=== PATIENT | male | born 1980 | race Caucasian/White ===

== ENCOUNTER 2018-12-01 15:08 | Inpatient (IN) | payer MEDICARE ==
[~2018-12-01] VITALS: Ht 185.4 cm; Wt 118.2 kg
--- NOTE | ~2018-12-01 | CN ---
PATIENT NAME:ZAY DE JESUS MEDICAL RECORD: [id number] : 76 LOCATION:D.MS [id number] ADMIT DATE: 12/01/18 ACCOUNT: [id number] CONSULTING PHYSICIAN: SHANE GARCÍA MD REFERRING PHYSICIAN: JEREMY PETERSON MD DATE OF CONSULTATION: 12/01/2018 CONSULT REQUESTING PHYSICIAN: Siva Valverde DO REASON FOR CONSULTATION: Pneumonia, leukocytosis, and fever. HISTORY OF PRESENT ILLNESS: Mr. De Jesus is a 38-year-old gentleman who has upper respiratory tract infection, started 2 weeks ago. The patient did not see any doctor and he did not take any antibiotics. Last night, he had a fever of 102, seen in Dr. Peterson' office. Chest radiograph showed he has pneumonia on the right side. There is no chest x-ray available for review. REVIEW OF THE SYSTEMS: As in history of present illness. PAST MEDICAL HISTORY: 1. Attention deficit syndrome. 2. Rheumatoid arthritis. 3. History of opioid dependence. 4. Chronic backache. ALLERGIES: HE IS ALLERGIC TO BUSPAR. MEDICATIONS: Gecko Audio was reviewed. PERSONAL AND SOCIAL HISTORY: He is smoker, he believes he quit it yesterday. PHYSICAL EXAMINATION: GENERAL: Now, the patient is lying comfortably in bed. He is not in acute distress. VITAL SIGNS: The blood pressure is 136/76, pulse is 104, respiration is 18, temperature is 99, and SpO2 is 96% on room air. HEENT: Conjunctivae are pink. Sclerae are not icteric. NECK: Neck is supple. No JVD. CHEST: On chest excursion, minimal crackle on the right side. No wheezing. HEART: Rhythm regular. Normal sound. No murmur. ABDOMEN: Abdomen is soft. Bowel sounds present. No hepatosplenomegaly. RECTAL: Deferred. EXTREMITIES: No cyanosis. No clubbing. No pedal edema. CENTRAL NERVOUS SYSTEM: The patient is awake and alert. There is no obvious cranial nerve abnormality. The gait was not tested. LABORATORY DATA: CBC; WBC is 26.6, hemoglobin 13.5, hematocrit 39.6, and platelet count 182. Chemistry; sodium 138, potassium 3.6, BUN is 13, and creatinine 0.9. IMPRESSION: 1. Pneumonia on the right side. 2. Leukocytosis. 3. Fever. 4. Hypertension. CONSULT REPORT [id number] ZAY DE JESUS 5. Rheumatoid arthritis. 6. Tobacco dependence syndrome. 7. Suspect COPD. RECOMMENDATION: 1. Continue albuterol/ipratropium nebulizer. 2. Methylprednisolone IV. 3. Vancomycin IV and Levaquin IV. 4. Follow up labs and chest radiograph. 5. The patient was counseled to quit smoking. Dr. Valverde, thank you for involving me in the care of Mr. De Jesus. TRANSINT:[id number] Voice Confirmation ID: [id number] DOCUMENT ID: [id number] SHANE GARCÍA MD CC: JEREMY PETERSON [id number] DICTATION DATE: 12/01/18 173 PAINT PREP TECHNICIAN: 12/01/18 1834 ADM IN [place] [place] [id number] [place] [address]
[~2018-12-01 15:08] MED LIST: ANUSOL SUPP1 SUPP; ANUSOL-HC25 MG RC; COLACE100 MG PO; KLONOPIN0.5 MG PO; LEVAQUIN500 MG PO; NORCO 10/325 TA1 TA1 PO; PHENERGAN25 M1 PO; PLAQUENIL200 MG PO; PRILOSEC20 MG PO; PRINIVIL20 MG PO; SOMA350 MG PO; TRICOR145 MG PO; TYLENOL #4 W/CO1 TAB PO
[2018-12-01] MEDS ORDERED: BUPRENORPHIN-N1 EACH (15:41)
[2018-12-01] MEDS ORDERED: ADDERALL 20 MG20 M1 (15:42)
[2018-12-01] MEDS ORDERED: VOLTAREN100 GM TOPICAL (15:45)
[2018-12-01 16:02] VITALS: BP 136/76; Ht 185.4 cm; Wt 118.2 kg
[2018-12-01 16:50] LABS: HEMATOCRIT 39.6 % (42.0-54.0); HEMOGLOBIN 13.5 g/dL (13.5-17.5); MCH 29.5 pg (26.0-34.0); MCHC 34.1 g/dL (31.0-37.0); MCV 86.5 fL (80.0-100.0); MEAN PLATELET VOLUME 11.8 fL (7.4-10.4); PLATELET COUNT 182 10x3/uL (130-400); RBC 4.58 10x6/uL (4.20-6.10); RDW 13.1 % (11.5-14.5); WBC 26.6 10x3/uL (4.8-10.8)
[2018-12-01 16:53] LABS: ALBUMIN 3.2 g/dL (3.4-5.0); ALKALINE PHOSPHATASE 84 U/L (46-116); ALT (SGPT) 33 U/L (10-68); BILIRUBIN - TOTAL 0.75 mg/dL (0.2-1.3); CALC OSMOLALITY 275 mosm/kg (275-300); CALCIUM 8.5 mg/dL (8.5-10.1); CARBON DIOXIDE 26.5 mmol/L (21.0-32.0); CHLORIDE - SERUM 102 mmol/L (98-107); CREATININE - SERUM 0.9 mg/dL (0.6-1.3); GLUCOSE 92 mg/dL (74-106); POTASSIUM - SERUM 3.6 mmol/L (3.5-5.1); PROTEIN - SERUM 7.5 g/dL (6.4-8.2); SODIUM 138 mmol/L (136-145); UREA NITROGEN 13 mg/dL (7-18); eGFR NON AFRICAN AMERICAN > 90 mL/min (90-120)
[2018-12-01 17:23] VITALS: BP 136/76
[2018-12-01 18:31] LABS: EOSINOPHILS 2 % (0-7); LYMPHOCYTES 8 % (15-50); MONOCYTES 1 % (2-11); NEUTROPHILS 89 % (40-80); PLATELET ESTIMATE NORMAL
--- NOTE | 2018-12-01 19:35 | NUR ---
LYING IN BED. ALERT AND ORIENTED X4. RESP EVEN AND NONLABORED. NONPROD COUGH NOTED. ABD IS DISTENDED. BS ACTIVE X4 QUADS. STATES LAST BM WAS 2 DAYS AGO. NS @ 100 ML/HR INFUSING IN LT HAND WITHOUT DIFF. REPORTS PAIN ALL OVER 8. OFFERED TYLENOL. PT REFUSED. ASKING ABOUT HIS SUBOXONE. INFORMED PT IT IS DUE AT 2100 AND SAYS TO GIVE HIS OWN MED. HE STATES HE DOESNT HAVE HIS HOME MEDS WITH HIM AND GETS AGITATED.
[2018-12-01 20:31] VITALS: BP 143/86
--- NOTE | 2018-12-01 22:03 | NUR ---
SPOKE WITH PHARMACY. SUBOXONE FILM IS UNAVAILABLE IN PHARMACY, ALL THEY HAVE ARE TABS. ORDER CHANGED TO SUBLIGUAL TABS PER PHARMACY. PT MEDICATED AT THIS TIME.
[2018-12-02 01:05] VITALS: BP 115/73
[2018-12-02 04:47] VITALS: BP 127/71
[2018-12-02 05:32] LABS: BASOPHILS 0.1 % (0-2); EOSINOPHILS 0.3 % (0-7); HEMATOCRIT 37.1 % (42.0-54.0); HEMOGLOBIN 12.5 g/dL (13.5-17.5); IMMATURE GRANULOCYTES 0.3 % (0-5); MCH 29.5 pg (26.0-34.0); MCHC 33.7 g/dL (31.0-37.0); MCV 87.5 fL (80.0-100.0); MEAN PLATELET VOLUME 11.4 fL (7.4-10.4); MONOCYTES 4.4 % (2-11); NEUTROPHILS 83.9 % (40-80); PLATELET COUNT 160 10x3/uL (130-400); RBC 4.24 10x6/uL (4.20-6.10); RDW 13.4 % (11.5-14.5)
[2018-12-02 06:03] LABS: ALKALINE PHOSPHATASE 80 U/L (46-116); ALT (SGPT) 30 U/L (10-68); BILIRUBIN - TOTAL 0.89 mg/dL (0.2-1.3); CALC OSMOLALITY 277 mosm/kg (275-300); CALCIUM 8.5 mg/dL (8.5-10.1); CARBON DIOXIDE 25.9 mmol/L (21.0-32.0); CHLORIDE - SERUM 103 mmol/L (98-107); CREATININE - SERUM 0.9 mg/dL (0.6-1.3); GLUCOSE 106 mg/dL (74-106); POTASSIUM - SERUM 3.7 mmol/L (3.5-5.1); PROTEIN - SERUM 7.3 g/dL (6.4-8.2); SODIUM 139 mmol/L (136-145); UREA NITROGEN 13 mg/dL (7-18); eGFR NON AFRICAN AMERICAN > 90 mL/min (90-120)
[2018-12-02 08:59] VITALS: BP 151/85
--- NOTE | 2018-12-02 09:40 | NUR ---
PT SITTING UP IN BED WATCHING TV. NO ACUTE DISTRESS NOTED. REPORTS PAIN 8/10, SCHEDULED PAIN MED TO BE ADMINISTERED AT THIS TIME. PRESENTS WITH MILD ANXIETY. IV TO LEFT HAND WITH NS @ 100ML/HR INFUSING VIA PUMP. SITE WITHOUT REDNESS OR EDEMA. DENIES FURTHER NEEDS AT THIS TIME. CL WITHIN REACH. CONTINUE POC.
[2018-12-02 12:16] VITALS: BP 140/70
--- NOTE | 2018-12-02 15:59 | MORECARE ---
CASE MANAGEMENT DISCHARGE SUMMARY PATIENT: ZAY DE JESUS UNIT: [id number] ADM DATE: 12/01/18 AGE: 38 : [birth year] SEX: M ROOM/BED: D.2235 AUTHOR: SYDNIE SANTOS PHYSICIAN: REFERRING PHYSICIAN: JEREMY POLLACK MD DATE OF SERVICE: 12/02/18 Discharge Plan Patient Name: ZAY DE JESUS [facility] [facility] 1980 Planned Disposition: Home Anticipated Discharge Date: 12/05/18 Discharge Date: Expected LOS: 4 Initial Reviewer: [email or web address] Initial Review Date: 12/02/2018 Generated: 12/02/18 4:59 pm Patient Name: ZAY DE JESUS Page 30606 at 155 All edits/amendments must be made on the electronic document DICTATION DATE: 12/02/181558 CATERING COORDINATOR: ROHIT 12/02/18 1559 RPT#: [id number] DC DATE: STATUS: ADM IN [facility] [address] [place] [address] END OF REPORT
[2018-12-02 16:02] VITALS: BP 145/80
--- NOTE | 2018-12-02 16:10 | MORECARE ---
CASE MANAGEMENT DISCHARGE SUMMARY PATIENT: ZAY DE JESUS UNIT: [id number] ADM DATE: 12/01/18 AGE: 38 : 78 SEX: M ROOM/BED: D.2235 AUTHOR: TOM,DOC PHYSICIAN: REFERRING PHYSICIAN: JEREMY POLLACK MD DATE OF SERVICE: 12/02/18 Discharge Plan Patient Name: ZAY DE JESUS Facility: [facility]:[place] : 1980 Planned Disposition: Home Anticipated Discharge Date: 12/05/18 Discharge Date: Expected LOS: 4 Initial Reviewer: [email or web address] Initial Review Date: 12/02/2018 Generated: 12/02/18 5:10 pm Comments DCP- Discharge Planning Updated by [email or web address]: Saloni Zelaya on 12/02/18 3:[address] Patient Name: ZAY DE JESUS Admission Status: Elective Accout number: [id number] Admission Date: 12-01-2018 : 1980 Admission Diagnosis: Attending: JEREMY POLLACK Current LOS: 1 Anticipated DC Date: 12-05-2018 Planned Disposition: Home Primary Insurance: MEDICARE A & B Discharge Planning Comments: CM MET WITH PATIENT REGARDING D/C NEEDS AND PLANS. PATIENT STATED HIS (KRISSY) WILL DRIVE HIM HOME AT DISCHARGE. PATIENT STATED THERE ARE 5 STEPS TO ENTER HOME AND NO STAIRS INSIDE. PATIENT STATED HIS HELPS HIM WHEN NEEDED. PATIENT HAS A WHEELCHAIR, AND A CANE AT HOME IF NEEDED. PATIENT STATED HIS PCP IS DR. JESUS AND PHARMACY IS [facility]. PATIENT REFUSED HOME HEALTH WHEN OFFERED. CM WILL CONTINUE TO FOLLOW PATIENT WITH D/C NEEDS AND PLANS. [facility] () [phone] Oxygen Equipment Preparer: Saloni Zelaya DCPIA - Discharge Planning Initial Assessment Updated by [email or web address]: Saloni Zelaya on 12/02/18 4:00 pm * Is the patient Alert and Oriented? Yes * How many steps to enter\exit or inside your home? * PCP DR. JESUS * Pharmacy [facility] * Preadmission Environment Home with Family * ADLs Partial Dependent * Partial ADLs (Assistance needed) Bathing Dressing Medication Management * Equipment Cane Wheelchair * List name and contact numbers for known caregivers / representatives who currently or will assist patient after discharge: KRISSY () [phone] * Verbal permission to speak to the caregivers and representatives has been obtained from the patient. Yes * Community resources currently utilized None * Additional services required to return to the preadmission environment? Yes * Can the patient safely return to the preadmission environment? Yes * Has this patient been hospitalized within the prior 30 days at any hospital? No Last DP export: 12/02/18 2:59 p Patient Name: ZAY DE JESUS Page 86079 at 1610 All edits/amendments must be made on the electronic document DICTATION DATE: 12/02/181609 ELECTRONIC ASSEMBLER GROUP LEADER: ROHIT 12/02/181609 RPT#: [id number] DC DATE: STATUS: ADM IN [facility] [address] [place] [address] END OF REPORT
[2018-12-02 20:36] VITALS: BP 111/78
--- NOTE | 2018-12-02 20:55 | NUR ---
PATIENT REQUESTED TO BE DISCONNECTED FROM HIS IV TO TAKE A SHOWER. PATIENT HAS NO S/S OF DISTRESS. IMMUNOLOGIST AT BEDSIDE TO ASSIST PATIENT AND CHANGE LINENS. PATIENT DENIES OTHER NEEDS AT THIS TIME. BED IN LOWEST POSITION AND CALL LIGHT WITHIN REACH. ENCOURAGED THE PATIENT TO CALL IF HE HAS NEEDS. WILL CONTINUE TO MONITOR.
[2018-12-03 01:58] VITALS: BP 112/58
[2018-12-03 04:12] VITALS: BP 124/60
[2018-12-03 04:56] LABS: BASOPHILS 0.5 % (0-2); EOSINOPHILS 1.1 % (0-7); HEMATOCRIT 35.4 % (42.0-54.0); HEMOGLOBIN 11.6 g/dL (13.5-17.5); IMMATURE GRANULOCYTES 0.2 % (0-5); LYMPHOCYTES 23.6 % (15-50); MCHC 32.8 g/dL (31.0-37.0); MCV 88.5 fL (80.0-100.0); MEAN PLATELET VOLUME 12.1 fL (7.4-10.4); MONOCYTES 7.9 % (2-11); NEUTROPHILS 66.7 % (40-80); PLATELET COUNT 173 10x3/uL (130-400); RDW 13.6 % (11.5-14.5)
[2018-12-03 05:03] LABS: WBC 6.1 10x3/uL (4.8-10.8)
--- NOTE | 2018-12-03 06:12 | NUR ---
A/OX4. NO COMPLAINTS OR NEEDS. BREATHING EVEN AND UNLABORED. CALL LIGHT IN REACH, BED LOW. WILL CONTINUE POC.
[2018-12-03 06:24] LABS: ALBUMIN 2.7 g/dL (3.4-5.0); ALKALINE PHOSPHATASE 74 U/L (46-116); ALT (SGPT) 28 U/L (10-68); BILIRUBIN - TOTAL 0.46 mg/dL (0.2-1.3); CALC OSMOLALITY 289 mosm/kg (275-300); CALCIUM 8.1 mg/dL (8.5-10.1); CARBON DIOXIDE 26.3 mmol/L (21.0-32.0); CHLORIDE - SERUM 110 mmol/L (98-107); CREATININE - SERUM 0.9 mg/dL (0.6-1.3); GLUCOSE 106 mg/dL (74-106); POTASSIUM - SERUM 4.2 mmol/L (3.5-5.1); PROTEIN - SERUM 6.2 g/dL (6.4-8.2); SODIUM 145 mmol/L (136-145); UREA NITROGEN 16 mg/dL (7-18); eGFR NON AFRICAN AMERICAN > 90 mL/min (90-120)
--- NOTE | 2018-12-03 08:30 | NUR ---
PT SITTING UP IN BED WATCHING TV. RESP EVEN AND UNLABORED. NO ACUTE DISTRESS NOTED. REPORTS PAIN 7/10 AT THIS TIME, SCHEDULED TO RECIEVE PRESCRIBED PAIN MEDICATIONS AT THIS TIME. IV TO LEFT HAND WITH NS @ 100ML/HR INFUSING VIA PUMP, SITE WITHOUT REDNESS OR EDEMA. SCD'S ON BILATERALLY. DENIES FURTHER NEEDS AT THIS TIME. CL WITHIN REACH. ENCOURAGED TO CALL WITH NEEDS. CONTINUE POC.
[2018-12-03 09:16] VITALS: BP 125/79
[2018-12-03 12:00] VITALS: BP 138/79
--- NOTE | 2018-12-03 12:33 | MORECARE ---
CASE MANAGEMENT DISCHARGE SUMMARY PATIENT: ZAY DE JESUS UNIT: [id number] ADM DATE: 12/01/18 AGE: 38 : 78 SEX: M ROOM/BED: D.2235 AUTHOR: SYDNIE SANTOS PHYSICIAN: REFERRING PHYSICIAN: JEREMY POLLACK MD DATE OF SERVICE: 12/03/18 Discharge Plan Patient Name: ZAY DE JESUS Facility: [facility]:[place] : 1980 Planned Disposition: Home Anticipated Discharge Date: 12/05/18 Discharge Date: Expected LOS: 4 Initial Reviewer: [email or web address] Initial Review Date: 12/02/2018 Generated: 12/03/18 1:33 pm Comments DCP- Discharge Planning Updated by [email or web address]: Nunu Vincent on 12/03/18 11:[address] Patient Name: ZAY DE JESUS Encounter No: [id number] : 1980 Primary Insurance: MEDICARE A & B Anticipated DC Date: 12-05-2018 Planned Disposition: Home External Planned Provider: : DCP follow-up note: Patient and family in agreement with discharge plan. His is in the room. He declines home health or any DME needs. No changes to plan. Case management will follow and assist as needed. Nunu Vincent DCP- Discharge Planning Updated by [id number]: Saloni Zelaya on 12/02/18 3:[address] Patient Name: ZAY DE JESUS Admission Status: Elective Accout number: [id number] Admission Date: 12-01-2018 : 1980 Admission Diagnosis: Attending: JEREMY POLLACK Current LOS: 1 Anticipated DC Date: 12-05-2018 Planned Disposition: Home Primary Insurance: MEDICARE A & B Discharge Planning Comments: CM MET WITH PATIENT REGARDING D/C NEEDS AND PLANS. PATIENT STATED HIS (KRISSY) WILL DRIVE HIM HOME AT DISCHARGE. PATIENT STATED THERE ARE 5 STEPS TO ENTER HOME AND NO STAIRS INSIDE. PATIENT STATED HIS HELPS HIM WHEN NEEDED. PATIENT HAS A WHEELCHAIR, AND A CANE AT HOME IF NEEDED. PATIENT STATED HIS PCP IS DR. JESUS AND PHARMACY IS [facility]. PATIENT REFUSED HOME HEALTH WHEN OFFERED. CM WILL CONTINUE TO FOLLOW PATIENT WITH D/C NEEDS AND PLANS. PCP DR[facility] JESUS [facility] () [phone] Shipping/Receiving Clerk: Saloni Zelaya DCPIA - Discharge Planning Initial Assessment Updated by [id number]: Saloni Zelaya on 12/02/18 4:00 pm * Is the patient Alert and Oriented? Yes * How many steps to enter\exit or inside your home? * PCP DR. JESUS * Pharmacy [facility] * Preadmission Environment Home with Family * ADLs Partial Dependent * Partial ADLs (Assistance needed) Bathing Dressing Medication Management * Equipment Cane Wheelchair * List name and contact numbers for known caregivers / representatives who currently or will assist patient after discharge: KRISSY () [phone] * Verbal permission to speak to the caregivers and representatives has been obtained from the patient. Yes * Community resources currently utilized None * Additional services required to return to the preadmission environment? Yes * Can the patient safely return to the preadmission environment? Yes * Has this patient been hospitalized within the prior 30 days at any hospital? No Last DP export: 12/02/18 3:10 p Patient Name: ZAY DE JESUS Page 24460 at 1233 All edits/amendments must be made on the electronic document DICTATION DATE: 12/03/181231 SUPERVISOR BAK[employer] SANITATION: ROHIT 12/03/181231 RPT#: [id number] DC DATE: STATUS: ADM IN [facility] [address] [place] [address] END OF REPORT
[2018-12-03] MEDS ORDERED: LEVAQUIN750 MG PO (13:37)
[2018-12-03] MEDS ORDERED: TESSALON PERLE100 MG PO (13:37)
[2018-12-03] MEDS ORDERED: MUCINEX600 MG PO (13:37)
--- NOTE | 2018-12-04 11:11 | MORECARE ---
CASE MANAGEMENT DISCHARGE SUMMARY PATIENT: ZAY DE JESUS UNIT: [id number] ADM DATE: 12/01/18 AGE: 38 : 76 SEX: M ROOM/BED: D.2235 AUTHOR: SYDNIE SANTOS PHYSICIAN: REFERRING PHYSICIAN: JEREMY POLLACK MD DATE OF SERVICE: 12/04/18 Discharge Plan Patient Name: ZAY DE JESUS Facility: [facility]:[place] : 1980 Planned Disposition: Home Anticipated Discharge Date: 12/05/18 Discharge Date: 12/03/2018 Expected LOS: 4 Initial Reviewer: [email or web address] Initial Review Date: 12/02/2018 Generated: 12/04/18 12:11 pm Comments DCP- Discharge Planning Updated by [email or web address]: Nunu Vincent on 12/03/18 11:[address] Patient Name: ZAY DE JESUS Encounter No: [id number] : 1980 Primary Insurance: MEDICARE A & B Anticipated DC Date: 12-05-2018 Planned Disposition: Home External Planned Provider: : DCP follow-up note: Patient and family in agreement with discharge plan. His is in the room. He declines home health or any DME needs. No changes to plan. Case management will follow and assist as needed. Nunu Vincent DCP- Discharge Planning Updated by [id number]: Saloni Zelaya on 12/02/18 3:[address] Patient Name: ZAY DE JESUS Admission Status: Elective Accout number: [id number] Admission Date: 12-01-2018 : 1980 Admission Diagnosis: Attending: JEREMY POLLACK Current LOS: 1 Anticipated DC Date: 12-05-2018 Planned Disposition: Home Primary Insurance: MEDICARE A & B Discharge Planning Comments: CM MET WITH PATIENT REGARDING D/C NEEDS AND PLANS. PATIENT STATED HIS (KRISSY) WILL DRIVE HIM HOME AT DISCHARGE. PATIENT STATED THERE ARE 5 STEPS TO ENTER HOME AND NO STAIRS INSIDE. PATIENT STATED HIS HELPS HIM WHEN NEEDED. PATIENT HAS A WHEELCHAIR, AND A CANE AT HOME IF NEEDED. PATIENT STATED HIS PCP IS DR. JESUS AND PHARMACY IS [facility]. PATIENT REFUSED HOME HEALTH WHEN OFFERED. CM WILL CONTINUE TO FOLLOW PATIENT WITH D/C NEEDS AND PLANS. PCP DR[facility] JESUS [facility] () [phone] Manager Cable: Saloni Zelaya DCPIA - Discharge Planning Initial Assessment Updated by [id number]: Saloni Zelaya on 12/02/18 4:00 pm * Is the patient Alert and Oriented? Yes * How many steps to enter\exit or inside your home? * PCP DR. JESUS * Pharmacy [facility] * Preadmission Environment Home with Family * ADLs Partial Dependent * Partial ADLs (Assistance needed) Bathing Dressing Medication Management * Equipment Cane Wheelchair * List name and contact numbers for known caregivers / representatives who currently or will assist patient after discharge: KRISSY () [phone] * Verbal permission to speak to the caregivers and representatives has been obtained from the patient. Yes * Community resources currently utilized None * Additional services required to return to the preadmission environment? Yes * Can the patient safely return to the preadmission environment? Yes * Has this patient been hospitalized within the prior 30 days at any hospital? No Last DP export: 12/03/18 11:33 a Patient Name: ZAY DE JESUS Page 43783 at 1111 All edits/amendments must be made on the electronic document DICTATION DATE: 12/04/18 1111 DIRECTOR OF FINANCIAL AID: ROHIT 12/04/18 1111 RPT#: [id number] SD DATE:12/03/18 STATUS: DIS IN [facility] [address] [place] [address] END OF REPORT
== END 2018-12-03 18:02 | disposition home or self-care (01) | DRG 177 ==
LOC: D.MS 15:08
PROVIDERS: Family Medicine; ADMIT Family Medicine
DX: J15.6 Pneumonia due to other Gram-negative bacteria (principal); J96.01 Acute respiratory failure with hypoxia; J44.0 Chronic obstructive pulmonary disease with (acute) lower respiratory infection; F11.20 Opioid dependence, uncomplicated; M06.9 Rheumatoid arthritis, unspecified; F17.200 Nicotine dependence, unspecified, uncomplicated; I10 Essential (primary) hypertension; E78.5 Hyperlipidemia, unspecified; F90.0 Attention-deficit hyperactivity disorder, predominantly inattentive type

== ENCOUNTER → 2019-08-27 09:00 | Outpatient (CLI) | payer MEDICARE, MEDICAID ==
[2018-12-01 16:02] VITALS: BMI 34.3
[~2019-08-27 09:00] MED LIST changes: +ADDERALL 20 MG20 M1; +BUPRENORPHIN-N1 EACH; +LEVAQUIN750 MG PO; +MUCINEX600 MG PO; +TESSALON PERLE100 MG PO; +VOLTAREN100 GM TOPICAL
== END | disposition home or self-care (01) ==
LOC: D.MAMMO 09:00
PROVIDERS: ATTEND Emergency Medicine
DX: N63.10 Unspecified lump in the right breast, unspecified quadrant (principal); N62 Hypertrophy of breast